=== PATIENT | male | born 1955 | race Caucasian/White ===

== ENCOUNTER → 2016-11-20 08:12 | Day surgery (SDC) | payer BC ==
[~2016-11-20 08:12] MED LIST: Atracurium* 10 MG/ML 10 ML VIAL ONE; Buffered Lidocaine 1% SYRIN* 3 ML/SYR SYRINGE INTRADERM ONE; Dexamethasone IV* 4 MG/ML 1 ML (4 MG) ONE; EPHEDrine (Pressors)* 50 MG/ML VIAL ONE; Famotidine IV* 10 MG/ML 2 ML (20 mg) IV ONE; Famotidine IV* 10 MG/ML 2 ML (20 mg) ONE; Gelatin ADSORBABLE (OPHTH)* OPHTH.FILM ONE; Gelfoam 12-7 ADSORBABLE* SPONGE ONE; Glycopyrrolate IV* 0.2 MG/ML 1 ML VIAL ONE; KETAMINE HCL* 50 MG/ML 10 ML VIAL ONE; Lidocaine 2% EPI 1:200000 MPF* 20 ML VIAL ONE; Lidocaine 2% PF* 5 ML VIAL ONE; Metoprolol Tartrate IV* 1 MG/ML 5 ML VIAL ONE; Midazolam* 1 MG/ML 5 ML VIAL (5 MG) ONE; Morphine INJ* 2 MG/ML 1 ML SYRINGE IV PRN; Neostigmine Methylsulfate* 2 MG/2 ML SYRINGE ONE; Ondansetron INJ* 2 MG/ML VIAL ONE; Oxymetazoline 0.05% NASAL SPR* 15 ML BTL ONE; PROCHLORPERAZINE INJ 5 MG/ML 2 ML VIAL IV PRN; PROCHLORPERAZINE INJ 5 MG/ML 2 ML VIAL ONE; Propofol* 10 MG/ML 20 ML BTL IV PUSH ONE; Scopolamine 1.5 mg* PATCH ONE; Scopolamine 1.5 mg* PATCH TRANSDERM SCH; Scopolomine PATCH Remove* 1 NOTE MISC PATCH OFF SCH; fentaNYL* 50 MCG/ML 2 ML VIAL (100 MCG VIAL) ONE; hydrALAZINE IV* 20 MG/ML VIAL ONE; oxyCODONE/Acetamin 5/325 MG* TAB ONE; oxyCODONE/Acetamin 5/325 MG* TAB PO PRN
[2016-11-20] MEDS: fentaNYL* 50 MCG/ML 2 ML VIAL (100 MCG VIAL) IV PRN ×3 (12:18→13:03)
[2016-11-20 13:59] VITALS: BP 152/89
--- NOTE | 2016-11-20 23:28 | OP ---
DATE OF OPERATION: 11/20/16 [facility] [place] DATE OF : 59 SURGEON: Chance Ventura MD ANESTHESIOLOGIST: Nemesio Lutz MD ANESTHESIA: General PRE-OP DIAGNOSIS: Chronic sinusitis. POST-OP DIAGNOSIS: Chronic sinusitis. OPERATIVE PROCEDURE: 1. Bilateral video endoscopic maxillary antrostomy removal of the tissue. 2. Anterior and posterior ethmoidectomy. BRIEF HISTORY: This 61-year-old female with chronic sinusitis, significant history of nasal congestion, facial pressure, postnasal drainage, and rhinorrhea ; elected for surgical management. DESCRIPTION OF PROCEDURE: The patient was taken to the operating room, where under a general anesthetic, the patient was intubated. Nose was decongested with Afrin pledgets. 0-degree telescope, 30-degree telescope, and other endoscopic sinus surgery instruments including microshaver were utilized. The x -rays were available in the operating room and were consulted. Initially, we infiltrated with 2% lidocaine with epinephrine into the uncinate area on both sides in the ethmoid region as well as the middle turbinate. Portion of the septum was also infiltrated. Next, we turned our attention to removing the uncinate process. Backbiter was used to remove the uncinate and microshaver was to used to completely enlarge it. The antrostomy was then identified and enlarged. Copious amounts of thick mucoid material was suctioned from the antrum. Next, we turned our attention to the ethmoidal region. The ethmoidal bulla resection was carried out with the microshaver and subsequently carried out laterally towards the lamina papyracea, posteriorly towards the skull base, and superiorly into the nasal frontal duct area. Once adequate resection of the ethmoids were carried out, a small piece of Gelfilm and Gelfoam was placed as a spacer between the middle turbinate and lateral nasal wall. Again on the right side, similarly uncinate process peeled out. Microshaver was used to enlarge the antrostomy and thick amounts of mucoid material was suctioned out. The ethmoidal bulla was resected posteriorly towards the skull base, superiorly into the nasal frontal duct area, and towards the lamina papyracea. Once adequate resection was carried out, a small piece of Gelfilm and Gelfoam was used as a spacer between the middle turbinate and lateral nasal wall. A small nasal dressing was applied. The patient was awakened, sent to recovery room in stable condition. Instrument and sponge count correct. Blood loss approximately 50 cc. [id number]/[facility] #: [id number] SOUMYA
== END | disposition home or self-care (01) ==
LOC: OR 08:12
PROVIDERS: ATTEND Otolaryngology
DX: J32.0 Chronic maxillary sinusitis (principal); J32.2 Chronic ethmoidal sinusitis; J34.2 Deviated nasal septum
CPT/HCPCS: 88305; A9270-GY; J0360; J0780; J1100; J2250; J2405; J2704; J3010

== ENCOUNTER 2018-01-07 21:51 | Emergency (ER) | payer BC, OTHER ==
--- OUTSIDE RECORDS SUMMARY | 2018-01-07 21:56 | XMS REPORT ---
:1955 External Reference #:[id number] Author Organization [facility] Address [address] [place] [address] Phone [phone] Care Team Providers Name Role Phone Millie Olivo M.D. Care Team Information Layout Worker Unavailable García Cedeño M.D. 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 Onset: 06/03/2011 Difficulty breathing Chance Ventura MD Active Onset: 10/17/2016 Chronic rhinitis Chance Ventura MD Active Onset: 10/17/2016 Chronic maxillary sinusitis Chance Ventura MD Active Onset: 10/17/2016 Chronic ethmoidal sinusitis Chance Ventura MD Active Onset: 11/14/2016 Deviated nasal septum Chance Ventura MD Active Family History Date Family Member(s) Problem(s) Comments General Allergies General Cancer General Diabetes General Heart Attack General Heart Disease General Migraine Social History Type Date Description Comments Occupation Acoustic Analysis Cigarette Use Never Smoked Cigarettes Cigars Never Smoked Cigars Pipe Never Smoked A Pipe Smokeless Tobacco Never Used Smokeless Tobacco ETOH Use Currently rarely consumes alcohol Allergies, Adverse Reactions, Alerts Date Description Reaction Status Severity Comments 10/17/2016 Nexium active 05/13/2011 NKDA inactive Medications Medication Date Status Form Strength Qnty SIG Indications Ordering Provider Budesonide 11/28/ Active Suspension 0.5mg/2ML 30unit 2ml in J32.0 Chance 2017 s saline Ruparelia, nasal MD wash twice a day Fish Oil / Active Unknown 0000 Qnasl / Active Aerosol 80mcg/Act Inhale 1 Unknown 0000 2 Sprays In Each Nostril Daily Trazodone HCL / Active Tablets 50mg Take Two Unknown 0000 Tablets By Mouth AT Bedtime Olopatadine / Active Solution 0.6% Use 1 2 Unknown HCL 0000 Sprays In Each Nostril Two Times A Day Celestone / Active 09/18/16-- Unknown 0000 Intramusc ular Glucosamine / Hx Unknown Chondroitin 0000 - 1500 Complex 2016 Zolpidem / Hx Tablets 10mg Take 1 Unknown Tartrate 0000 - Tablet By 10/17/ Mouth 2016 Every Night as Needed Maximum Daily Dose=1 Ta Omeprazole / Hx Capsules DR 40mg Take One Unknown 0000 - Capsule 10/17/ By Mouth 2016 Twice A Day Vital Signs Date Vital Result Comment 01/01/2018 Weight 245.00 lb Weight in kg's 111.132 Height 70 inches 5'10" Height in cm's 177.8 cm BMI (Body Mass Index) 35.1 kg/m2 07/03/2017 BP Systolic 135 mmHg BP Diastolic 77 mmHg Heart Rate 79 /min Respiratory Rate 17 /min Weight 232.00 lb Weight in kg's 105.235 Height 70 inches 5'10" Height in cm's 177.8 cm BMI (Body Mass Index) 33.3 kg/m2 12/30/2016 BP Systolic 160 mmHg BP Diastolic 97 mmHg Heart Rate 63 /min Respiratory Rate 17 /min Weight 232.00 lb Weight in kg's 105.235 Height 70 inches 5'10" Height in cm's 177.8 cm BMI (Body Mass Index) 33.3 kg/m2 11/28/2016 BP Systolic 142 mmHg BP Diastolic 86 mmHg Heart Rate 65 /min Respiratory Rate 17 /min Weight 232.00 lb Weight in kg's 105.235 Height 70 inches 5'10" Height in cm's 177.8 cm BMI (Body Mass Index) 33.3 kg/m2 11/14/2016 Respiratory Rate 17 /min Weight 232.00 lb Weight in kg's 105.235 Height 70 inches 5'10" Height in cm's 177.8 cm BMI (Body Mass Index) 33.3 kg/m2 10/17/2016 BP Systolic 174 mmHg BP Diastolic 76 mmHg Heart Rate 67 /min Respiratory Rate 17 /min Weight 232.00 lb Weight in kg's 105.235 Height 70 inches 5'10" Height in cm's 177.8 cm BMI (Body Mass Index) 33.3 kg/m2 05/13/2011 BP Systolic 134 mmHg BP Diastolic 82 mmHg Heart Rate 80 /min Respiratory Rate 16 /min Weight 243.00 lb Weight in kg's 110.225 Height 70 inches 5'10" Height in cm's 177.8 cm BMI (Body Mass Index) 34.9 kg/m2 Results Test Date Test Result H/L Range Note Laboratory test 11/20/2016 Surgical Pathology SEE RESULT BELOW 1 finding 1 SEE RESULT BELOW Name: TERA CUNNINGHAM : [address]: Donald Ventura MD Acct: [id number] Unit: [id number] AGE: 61 Location: OR Re11/20/16 SEX: M Status: RADHA SANDOVAL SPEC: [id number] CARLO: 11/20/16- SUBM DR: Donald Ventura MD REQ: [id number] RECD: 11/20/16447 STATUS: SOUT _ ORDERED: LEVEL IV/2 FINAL DIAGNOSIS 1. Left maxillary and ethmoid sinus contents: -- Chronically inflamed respiratory mucosa and bone fragments. 2. Right maxillary and ethmoid sinus contents: -- Chronically inflamed respiratory mucosa and bone fragments. PRE-OPERATIVE DIAGNOSIS Chronic maxillary and anterior ethmoid sinusitis GROSS DESCRIPTION 1. The specimen is received in formalin labeled, Left Maxillary and Ethmoid Sinus Contents, and consists of a 1.8 x 1.5 x 0.4 cm aggregate of barrientos-pink irregular soft tissue fragments admixed with barrientos-white cartilage. Entirely submitted, one cassette. 2. The specimen is received in formalin labeled, Right Maxillary and Ethmoid Sinus Contents, and consists of a 1.4 x 0.8 x 0.3 cm aggregate of barrientos-pink cartilage and soft tissue. Entirely submitted, one cassette. Signed (signature on file) Adrian Hutton MD [id number] END OF REPORT * ML=Testing performed at Main Lab DEPARTMENT OF PATHOLOGY, [address] [place] [address] Adrian Hutton M.D. Director [facility] # [id number] Procedures Date CPT Code Description Status 01/01/2018 11403 Nasal Endoscopy, Diagnostic Completed 12/30/2016 95657 Nasal Endoscopy, Diagnostic Completed 11/20/2016 71588 Nasal Endoscopy W/Maxllary Antrostomy W/Excision Of Completed Poylp 11/20/2016 79178 Nasal Endoscopy/Ethmoidectomy, Total Completed Encounters Type Date Location Provider CPT E/M Dx Office Visit 07/03/2017 3:15p [place] 08/25/07 [place] [address] J32.2 J32.0 J34.2 Office Visit 11/28/2016 11:30a [facility] 08/25/07 [place] [address] J32.2 J32.0 J34.2 Office Visit 11/14/2016 3:15p [facility] 08/25/07 [place] [address] J31.0 J32.0 J32.2 J34.2 Office Visit 10/17/2016 11:15a [facility] 08/25/07 [place] [address] J31.0 J32.0 J32.2 Office Visit 05/13/2011 1:30p [facility] 08/25/07 [place] [address] 750.26 786.09 Plan of Care 01/01/2018 - Chance Ventura MDJ32.2 Chronic ethmoidal sinusitisComments: Patient is greater than 6 months out after sinus surgery. He has had no problems with recurrence. No evidence of recurrence on nasal endoscopy I suggest continuing on topical nasal steroids Flonase 2puffs both sides once a day recheck back in one year's time.J32.0 Chronic maxillary sinusitis
[2018-01-07 21:57] VITALS: BP 136/81
--- NOTE | 2018-01-07 22:07 | UC ---
Hernan Fair Julia, scribed for Michael Andino MD on 01/07/18 at 2158 . Skin Complaint HPI - HPI Summary HPI Summary: This patient is a 62 year old M presenting [place] [facility] [place] a chief complaint of a tick bite to his periumbilical area at 21: 05 this evening. Patient has no other complaints. - History of Current Complaint Stated Complaint: TICK REMOVAL Hx Obtained From: Patient Onset/Duration: Sudden Onset Skin Exposure Onset/Duration: Minutes Ago Timing: Constant Location: Other - periumbilical area Aggravating Factor(s): Nothing Alleviating Factor(s): Nothing Associated Signs & Symptoms: Positive: Negative Related History: Insect Bite/Sting - Allergy/Home Medications Allergies/Adverse Reactions: Allergies Allergy/AdvReac Type Severity Reaction Status Date / Time esomeprazole [From Nexium] Allergy Intermediate Heartburn Verified 01/07/18 21: 59 latex Allergy Intermediate Rash Verified 01/07/18 21:59 pollen extracts Allergy Intermediate Runny Nose Verified 01/07/18 21:59 mold Allergy Severe Runny Nose Uncoded 01/07/18 21:59 bee sting Allergy Intermediate Hives Uncoded 01/07/18 21:59 Review of Systems Constitutional: Negative Skin: Other - tick bite Is Patient Immunocompromised?: Yes All Other Systems Reviewed And Are Negative: Yes PMH/Surg Hx/FS Hx/Imm Hx Previously Healthy: Yes - Surgical History Surgical History: Yes Surgery Procedure, Year, and Place: ORIF LEFT DISTAL TIBIAL FX- 30 YRS AGO- [facility] [place] - Family History Known Family History: Negative: Diabetes - Social History Alcohol Use: None Substance Use Type: None Smoking Status (MU): Never Smoked Tobacco Have You Smoked in the Last Year: No - Immunization History Most Recent Tetanus Shot: April 2012 Physical Exam - Summary Physical Exam Summary: VITAL SIGNS: Reviewed. GENERAL: Patient is a well-developed and nourished male who is lying comfortable in the stretcher. Patient is not in any acute respiratory distress. HEAD AND FACE: Normocephalic EYES: PERRLA, EOMI x 2. EARS: Hearing grossly intact. MOUTH: Oropharynx within normal limits. NECK: Supple, trachea is midline, no adenopathy, no JVD, no carotid bruit. CHEST: Symmetric, no tenderness at palpation LUNGS: Clear to auscultation bilaterally. No wheezing or crackles. CVS: Regular rate and rhythm, S1 and S2 present, no murmurs or gallops appreciated. ABDOMEN: Soft, non-tender. Bowel sounds are normal. No abdominal abnormal pulsations. EXTREMITIES: Full ROM in all major joints, no edema, no cyanosis or clubbing. NEURO: Alert and oriented x 3. No acute neurological deficits. Speech is normal and follows commands. SKIN: Dry and warm Triage Information Reviewed: Yes Vital Signs: Initial Vital Signs Temp 96.3 F 01/07/18 21:54 Pulse 76 01/07/18 21:54 Resp 15 01/07/18 21:54 BP 136/81 01/07/18 21:54 Pulse Ox 98 01/07/18 21:54 Vital Signs Reviewed: Yes Course/Dx - Course Course Of Treatment: There when another tick was removed without any complications. Bacitracin was applied. The tick was on the phone today. There is no need for prophylactic antibiotics. Patient was discharged home with follow-up with PCP. Patient is hemodynamically stable and alert and oriented 3 - Diagnoses Provider Diagnoses: Tick bite Discharge - Sign-Out/Discharge Documenting (check all that apply): Discharge/Admit/Transfer - Discharge Plan Condition: Stable Disposition: HOME Patient Education Materials: Tick Bite (ED) Referrals: García Cedeño MD [Primary Care Provider] - Additional Instructions: Patient was discharged home with follow-up with PCP as needed. - Billing Disposition and Condition Condition: STABLE Disposition: HOME The documentation as recorded by the Hernan page Julia accurately reflects the service I personally performed and the decisions made by , Michael Andino MD.
== END 2018-01-07 22:10 | disposition home or self-care (01) ==
LOC: UCEAST 21:51
DX: S30.861A Insect bite (nonvenomous) of abdominal wall, initial encounter (principal); W57.XXXA Bitten or stung by nonvenomous insect and other nonvenomous arthropods, initial encounter; Y93.9 Activity, unspecified; Y92.9 Unspecified place or not applicable; Z88.8 Allergy status to other drugs, medicaments and biological substances; Z91.040 Latex allergy status
CPT/HCPCS: 99211; G0463